=== PATIENT | female | born 1975 | race Caucasian/White ===

== ENCOUNTER 2017-08-18 21:03 | Emergency (ER) | payer OTHER ==
[2017-08-18 21:12] VITALS: BP 143/86; PULSE 81; TEMP 98.1; BMI 25.1
[2017-08-18] MEDS ORDERED: BACITRACIN 15 GM TUBE TOPICAL OINTMENT TP ONE (21:24)
[2017-08-18] MEDS ORDERED: DIPHTH,PERTUSS(ACELL),TET 0.5 ML DISP.SYRIN IM ONE (21:24)
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
[2017-08-18] MEDS ORDERED: BACITRACIN 15 GM TUBE TOPICAL OINTMENT ONE (21:43)
== END 2017-08-18 21:49 | disposition home or self-care (01) ==
LOC: JER 21:03 → JERFT 21:03
PROC: 2W21X4Z Dressing of Face using Bandage (ICD-10-PCS; principal; 2017-08-18)
DX: T20.23XA Burn of second degree of chin, initial encounter (principal); T21.21XA Burn of second degree of chest wall, initial encounter; T31.0 Burns involving less than 10% of body surface; X08.8XXA Exposure to other specified smoke, fire and flames, initial encounter; Y93.89 Activity, other specified; Y92.038 Other place in apartment as the place of occurrence of the external cause
CPT/HCPCS: 16020; 90715; 99281-25